=== PATIENT | female | born 2000 | race Caucasian/White ===

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

== ENCOUNTER 2023-01-01 16:12 | Inpatient (IN) | payer BC ==
[~2023-01-01] VITALS: Ht 162.7 cm; Wt 113.6 kg
[2023-01-01] VITALS (26 sets, daily range): BP systolic 118–152; BP diastolic 58–95; PULSE 68–88; TEMP 97.8–98.5
[~2023-01-01 16:12] MED LIST: PROAIR HFA0.09 MG/AC IH; ZOLOFT 50MG50 MG PO
[2023-01-01 17:25] LABS: BASO # 0.1 K/mm3 (0.0-0.2); BASO % 0.4 % (0.0-2.0); EOS # 0.1 K/mm3 (0.0-0.7); EOS % 0.7 % (0.0-4.0); GRAN # 7.9 K/mm3 (1.4-6.5); GRAN % 69.5 % (42.2-75.2); HEMATOCRIT 37.3 % (37.0-47.0); HEMOGLOBIN 12.1 g/dl (12.5-16.0); LYMPH # 2.3 K/mm3 (1.2-3.4); LYMPH % 20.5 % (20.0-51.0); MEAN CELL VOLUME 83 fl (80.0-100.0); MEAN CORPUSCULAR HEMOGLOBIN 27 pg (27-31); MEAN CORPUSCULAR HGB CONC 32 g/dl (33.0-37.0); MEAN PLATELET VOLUME 11.7 fl (7.4-10.4); MONO % 8.5 % (1.7-9.3); PLATELET COUNT 231 K/mm3 (130-400); RED BLOOD COUNT 4.51 M/mm3 (4.10-5.30); REDCELL DISTRIBUTION WIDTH-CV 13.4 % (11.5-14.5)
[2023-01-01 17:45] LABS: ALBUMIN 2.8 gm/dL (3.5-5.0); BILIRUBIN,TOTAL 0.2 mg/dL (0.2-1.2); CALCIUM 9.4 mg/dL (8.4-10.2); CREATININE, serum 0.71 mg/dL (0.57-1.11); POTASSIUM 3.8 mmol/L (3.5-4.5); TOTAL PROTEIN 6.3 gm/dL (6.2-8.1)
--- NOTE | 2023-01-01 17:56 | NUR ---
PT WAS SENT OVER FROM THE OFFICE DUE TO A BPP OF 48. PT BROUGHT TO AND ORIENTED TO ROOM. CHANGED INTO GOWN. MONITORS APPLIED. MINIMAL VARIABILITY, CATEGORY 2. VITALS TAKEN, BP 140'S OVER 90'S. IV INTO RIGHT HAND. FLUID BOLUS STARTED. PT WAS NOT FEELING MANY CONTRACTIONS. STATED NO BLEEDING OR LEAKING OF FLUID. UPON FLUID BOLUS BABY BECOMES MORE REACTIVE AND IS NOW CATEGORY 1 TRACING.
--- NOTE | 2023-01-01 18:07 | NUR ---
1725 DR STEPHENSON AT BEDSIDE. DISSCUSSED WITH PT STARTING PITOCIN LONG BABY DOES WELL, OTHERWISE A MAY BE NEEDED. PT AGREED. DR STEPHENSON SAID THAT IN THE OFFICE SVE WAS /-2.
--- NOTE | 2023-01-01 18:15 | NUR ---
REPORT FROM DHAVAL PENNY. AT THIS TIME THE PATIENT IS POSITIONED WEDGE RIGHT. IVF INFUSING, PITOCIN RUNNING AT 4MU/HR. IV SITE IS NOT CDI, NO INFILTRATION NOTED. CATEGORY 2 TRACING D/T TACHYCARDIA IN THE 170'S. CONTRACTIONS NOTED, HOWEVER PATIENT DOES NOT FEEL THEM AT THIS TIME.
--- NOTE | 2023-01-01 18:45 | NUR ---
DIFFICULTY TRACING TOCO D/T MATERNAL POSITIONING.
--- NOTE | 2023-01-01 20:15 | NUR ---
DIFFICULTY TRACING TOCO D/T MATERNAL HABITUS AND POSITIONING.
--- NOTE | 2023-01-01 20:30 | NUR ---
DIFFICULTY TRACING TOCO D/T MATERNAL HABITUS AND POSITIONING.
--- NOTE | 2023-01-01 23:15 | NUR ---
DIFFICULTY TRACING TOCO D/T MATERNAL HABITUS AND POSITIONING; BOUNCING ON A BIRTHING BALL.
[2023-01-02] VITALS (68 sets, daily range): BP systolic 101–152; BP diastolic 53–88; PULSE 64–134; TEMP 97.9–98.5
--- NOTE | 2023-01-02 01:00 | NUR ---
PT UTERINE ACTIVITY BEGAN TO BE TACHYSYSTOLE. SEE PHYSICIAN NOTIFICATION. 500ML BOLUS AND PIT TURNED DOWN BY HALF TO 8MU/HR. PT DENIES ANY PAIN, STATES THAT "THEY ARE JUST ANNOYING, NOT UNBEARABLY PAINFUL." NO OTHER CONCERNS AT THE PRESENT MOMENT.
--- NOTE | 2023-01-02 05:15 | NUR ---
PITOCIN OFF PER 'S ORDER.
--- NOTE | 2023-01-02 07:06 | NUR ---
0630 RN BEDSIDE, PT ASLEEP/DOES NOT WAKE WHEN RN ENTERS ROOM. SPOUSE BEDSIDE
--- NOTE | 2023-01-02 07:34 | NUR ---
0724 SACHIN JACOME ON UNIT AND VISUALIZES STRIP. VERBAL ORDERS TO RESTART PITOCIN AT 2 AT THIS TIME. RN VITALIYVO.
--- NOTE | 2023-01-02 09:03 | NUR ---
0840 RN PALPATES ABDOMEN, ABDOMEN SOFT IN BETWEEN CONTRACTIONS. PT RESTING WITH FAMILY BEDSIDE FOR SUPPORT
--- NOTE | 2023-01-02 09:05 | NUR ---
0855 SACHIN JACOME VISUALIZES STRIP AND UPDATED ON PITOCIN LEVEL. ORDERS FOR RN TO REMAIN AT THAT LEVEL FOR NOW DUE TO MD HAVING TO LEAVE UNIT FOR PROCEDURE SHORTLY. RN RBVO.
--- NOTE | 2023-01-02 10:58 | NUR ---
1042 RN BEDSIDE. IVFB STARTED, POSITION CHANGED TO RL WITH PEANUT BALL. INTERVENTIONS EXPLAINED TO PT AND PT VERBALIZES UNDERSTANDING.
--- NOTE | 2023-01-02 11:16 | NUR ---
PT REMAINS IN RIGHT LATERAL WITH PEANUT BALL IN PLACE. PT IS BREATHING THRU CTX
--- NOTE | 2023-01-02 11:18 | NUR ---
1100 SACHIN JACOME BEDSIDE. SVE PERFORMED. NO CHANGE TO POC. PT REQUESTING EPIDURAL AT THIS TIME. TRAFFIC CONTROL OFFICER NOTIFIED AND IVFB CONTINUES.
--- NOTE | 2023-01-02 12:01 | NUR ---
PT BREATHING THRU CTX, RN BEDSIDE. WAITING FOR ANESTHESIA TO PLACE EPIDURAL.
--- NOTE | 2023-01-02 12:04 | NUR ---
PT SITTING ON SIDE OF BED FOR EPIDURAL PLACEMENT, RN ATTEMPTING TO HAND HOLD MONITORS.
--- NOTE | 2023-01-02 12:23 | NUR ---
1152 RN BEDSIDE; PT MOVED TO RIGHT SIDE WITH PEANUT BALL
--- NOTE | 2023-01-02 12:27 | NUR ---
RN BEDSIDE SUPPORTING PT SITTING ON SIDE OF BED. RN ATTEMTING TO HAND HOLD ULTRASOUND MONITOR
--- NOTE | 2023-01-02 13:11 | NUR ---
RN BEDSIDE;SWITCHES PT TO FAR RIGHT LATERAL WITH PEANUT BALL IN PLACE
--- NOTE | 2023-01-02 13:30 | NUR ---
1310 SACHIN JACOME UPDATED ON FHTS INCLUDING OCCASIONAL LATES/EARLIES, CTX PATTERN, PT COMFORTABLE WITH EPIDURAL, PITOCIN REMAINS AT 8, POSITION CHANGES, LATEST SVE. NO NEW ORDERS AT THIS TIME.
--- NOTE | 2023-01-02 13:33 | NUR ---
PT MOVED TO HIGH TAILORS "SUSAN" POSITION
--- NOTE | 2023-01-02 14:03 | NUR ---
TELEPHONE ORDERS FROM SACHIN JACOME TO TURN OFF PITOCIN. ORDERS TO RECHECK PT AND CALL MD BACK. MD UPDATED ON SVE. NO NEW ORDERS AT THIS TIME.
--- NOTE | 2023-01-02 14:45 | NUR ---
CALLED AND INSTRUCTED RN TO START PITOCIN AGAIN AT 2 AT THIS TIME. DHVAAL BAKER
--- NOTE | 2023-01-02 14:50 | NUR ---
RN EXPLAINS POC WITH PT. PT VERBALIZES UNDERSTANDING AND HAS NO QUESTIONS AT THIS TIME.
--- NOTE | 2023-01-02 15:23 | NUR ---
PT MOVED TO SEMI FOWLERS WITH HIP WEDGE
--- NOTE | 2023-01-02 16:09 | NUR ---
1545 RN BEDSIDE AND PT REQUESTS DIETER. DIETER UMCHANGED. PT STATES SHE WOULD "LIKE A ". RN STATES SHE WILL NOTIFY
--- NOTE | 2023-01-02 16:12 | NUR ---
1547 UPDATED ON PT REQUEST FOR SVE/UNCHANGED AND PT REQUESTING AT THIS TIME. GIVES ORDERS TO DISCONTINUE PITOCIN AND STATES HE WILL BE BEDSIDE IN ABOUT AN HOUR. GIVES ORDERS TO PREP PATIENT FOR . DHAVAL BAKER
--- NOTE | 2023-01-02 17:10 | NUR ---
8307 SACHIN JACOME BEDSIDE; DISCUSSES POC WITH PT. GORDON FROM MD TO HEAD BACK FOR C/S WHEN RN IS READY
--- NOTE | 2023-01-02 18:11 | NUR ---
PT RESTING COMFORTABLY
[2023-01-03 01:00] VITALS: BP 119/68; PULSE 78; TEMP 97.9
[2023-01-03 04:43] LABS: HEMOGLOBIN 10.8 g/dl (12.5-16.0)
[2023-01-03 04:47] LABS: HEMATOCRIT 32.1 % (37.0-47.0)
[2023-01-03 05:00] VITALS: BP 121/73; PULSE 78; TEMP 98.4
[2023-01-03 07:49] VITALS: BP 134/79; PULSE 95; TEMP 98
[2023-01-03 08:24] VITALS: BP 122/66; PULSE 83; TEMP 98.5
[2023-01-03 16:49] VITALS: BP 124/78; PULSE 89; TEMP 98.1
[2023-01-03 20:45] VITALS: BP 135/82; PULSE 94; TEMP 98.1
[2023-01-04 07:20] VITALS: BP 130/75; PULSE 88; TEMP 97.6
[2023-01-04] MEDS ORDERED: IBU600 MG PO (08:58)
== END 2023-01-04 09:30 | disposition home or self-care (01) | DRG 788 ==
LOC: OB 16:12 → LDR 16:32 → OB 01-02 10:13
PROVIDERS: ADMIT Obstetrics & Gynecology
PROC: 10D00Z1 Extraction of Products of Conception, Low, Open Approach (ICD-10-PCS; principal; 2023-01-02)
PROC: 10H07YZ Insertion of Other Device into Products of Conception, Via Natural or Artificial Opening (ICD-10-PCS; 2023-01-02)
DX: O13.4 Gestational [pregnancy-induced] hypertension without significant proteinuria, complicating childbirth (principal); O99.344 Other mental disorders complicating childbirth; F41.9 Anxiety disorder, unspecified; F32.A Depression, unspecified; Z3A.39 39 weeks gestation of pregnancy; Z37.0 Single live birth; O99.284 Endocrine, nutritional and metabolic diseases complicating childbirth; E28.2 Polycystic ovarian syndrome; O99.214 Obesity complicating childbirth; O69.89X0 Labor and delivery complicated by other cord complications, not applicable or unspecified; O36.5930 Maternal care for other known or suspected poor fetal growth, third trimester, not applicable or unspecified; O77.0 Labor and delivery complicated by meconium in amniotic fluid; O76 Abnormality in fetal heart rate and rhythm complicating labor and delivery; Z88.0 Allergy status to penicillin; Z23 Encounter for immunization
CPT/HCPCS: J0665; J0690; J1100; J1885; J2401; J2405; J2590; J2795; J7120